=== PATIENT | female | born 1985 | race Caucasian/White ===

== ENCOUNTER 2021-11-07 04:05 | Inpatient (IN) | payer OTHER ==
[~2021-11-07] VITALS: Ht 152.4 cm; Wt 94.3 kg
[2021-11-07] MEDS: LACTATED RINGERS 1,000 ML IV SCH ×3 (04:20→17:20)
[2021-11-07] MEDS ORDERED: MORPHINE SULFATE 5 MG/ML VIAL IVP PRN (04:55)
[2021-11-07] MEDS ORDERED: ONDANSETRON 4 MG/2 ML VIAL IVP PRN (04:55)
[2021-11-07] MEDS ORDERED: METHYLERGONOVINE 0.2 MG/ML AMP IM PRN ×2 (04:55→23:25)
[2021-11-07] MEDS: OXYTOCIN 20 UNITS in LACTATED RINGERS 1,000 ML IV SCH ×2 (04:55→14:03)
[2021-11-07] MEDS ORDERED: CARBOPROST 250 MCG/ML AMP IM PRN (04:55)
[2021-11-07] MEDS ORDERED: MORPHINE SULFATE 10 MG/ML VIAL ONE ×2 (05:05→07:45)
[2021-11-07] MEDS ORDERED: ONDANSETRON 4 MG/2 ML VIAL ONE (05:06)
[2021-11-07] MEDS ORDERED: PRETAB PO (05:16)
[2021-11-07 05:19] VITALS: BP 130/76
[2021-11-07 06:59] LABS: ALBUMIN 2.6 g/dL (3.4-5.0); ANION GAP 15.9 (8-16); CARBON DIOXIDE 19.1 mmol/L (21-32); CREATININE 0.8 mg/dL (0.6-1.3); TOTAL BILIRUBIN 0.3 mg/dL (0.0-1.0)
[2021-11-07] MEDS ORDERED: OXYTOCIN 20 UNITS/LR PREMIX 1,000 ML IV ONE (07:39)
[2021-11-07 07:44] LABS: BASOPHILS # (AUTO) 0.1 K/uL (0.00-0.22); BASOPHILS % (AUTO) 0.3 % (0.0-2.0); EOSINOPHILS % (AUTO) 0.3 % (0.0-4.0); HEMATOCRIT 34.7 % (36-48); HEMOGLOBIN 11.3 g/dL (12.0-16.0); LYMPHOCYTES # (AUTO) 1.9 K/uL (2.5-16.5); LYMPHOCYTES % (AUTO) 10.6 % (20.5-51.1); MEAN CORPUSCULAR HEMOGLOBIN 29 pg (27-31); MEAN CORPUSCULAR HGB CONC 33 g/dL (33-37); MEAN CORPUSCULAR VOLUME 88.1 fL (80-94); MONOCYTES # (AUTO) 0.8 K/uL (0.8-1.0); MONOCYTES % (AUTO) 4.7 % (1.7-9.3); NEUTROPHILS # (AUTO) 14.9 K/uL (1.8-7.7); NEUTROPHILS % (AUTO) 84.1 % (42.2-75.2); PLATELET COUNT (AUTO) 378 K/uL (140-450); RED BLOOD CELL COUNT(AUTO) 3.94 MIL/uL (4.20-5.40); RED CELL DISTRIBUTION WIDTH 15.3 % (11.6-13.7); WHITE BLOOD COUNT (AUTO) 17.7 K/uL (4.8-10.8)
[2021-11-07] MEDS ORDERED: ROPIVACAINE 0.2%/NS PREMIX 200 ML EPI ONE (08:34)
[2021-11-07] MEDS ORDERED: ROPIVACAINE 0.2%/NS PREMIX 100 ML EPI SCH (09:20)
[2021-11-07] MEDS ORDERED: AMPICILLIN 2,000 MG in NACL 0.9% 100 ML IV SCH ×2 (09:25→13:30)
[2021-11-07] MEDS ORDERED: GENTAMICIN PER PHARMACY MC PRN (09:25)
--- NOTE | 2021-11-07 09:27 | NUR ---
PATIENT HAS BEEN SCREENED AND CATEGORIZED LOW NUTRITION RISK. PATIENT WILL BE SEEN WITHIN 7 DAYS OF ADMISSION. 11/07/21-11/13/[address]
[2021-11-07 10:12] LABS: APPEARANCE,URINE CLEAR (CLEAR); BILIRUBIN,URINE NEGATIVE (NEGATIVE); BLOOD, URINE 2+ (NEGATIVE); COLOR,URINE DARK YELLOW (YELLOW); LEUKOCYTE ESTERASE ,URINE NEGATIVE (NEGATIVE); NITRITE, URINE NEGATIVE (NEGATIVE); UGLUCOSE NEGATIVE (NEGATIVE)
[2021-11-07 10:25] LABS: WBC,URINE 0-5 /HPF (0-5)
[2021-11-07 10:28] LABS: CALCIUM OXALATE CRYSTALS,UR 0-10 /HPF (None Seen); OTHER CASTS, URINE None Seen /LPF (None Seen)
[2021-11-07] MEDS ORDERED: GENTAMICIN 80 MG in DEXTROSE 5% 100 ML IV SCH ×2 (11:00→21:00)
[2021-11-07] MEDS ORDERED: CLINDAMYCIN 900 MG in DEXTROSE 5% 100 ML IV SCH ×5 (11:00→21:00)
[2021-11-07] MEDS ORDERED: GENTAMICIN 80 MG in NACL 0.9% 100 ML IV SCH ×2 (11:00→21:00)
[2021-11-07] MEDS ORDERED: ACETAMINOPHEN EXTRA STRENGTH 500 MG TAB PO PRN (15:50)
[2021-11-07] MEDS ORDERED: ACETAMINOPHEN EXTRA STRENGTH 500 MG TAB ONE (16:10)
[2021-11-07] MEDS ORDERED: CITRIC ACID/SODIUM CITRATE 30 ML UDC PO SCH (16:15)
[2021-11-07] MEDS ORDERED: LIDOCAINE MPF 1% 10 MG/ML VIAL INJ SCH (23:00)
[2021-11-07] MEDS ORDERED: LIDOCAINE 1% 500 MG/50 ML VIAL ONE (23:12)
[2021-11-07] MEDS ORDERED: IBUPROFEN 800 MG TAB PO PRN (23:25)
[2021-11-07] MEDS ORDERED: METHYLERGONOVINE 0.2 MG TAB PO PRN (23:25)
[2021-11-07] MEDS ORDERED: OXYTOCIN 10 UNITS/ML VIAL IM PRN (23:25)
[2021-11-07] MEDS ORDERED: MEASLES, MUMPS, AND RUBELLA 1 VIAL SQVAC ONE (23:25)
[2021-11-07] MEDS ORDERED: BENZOCAINE/MENTHOL 20%-0.5% 60 GM CAN TP PRN (23:25)
[2021-11-08 06:07] LABS: HEMATOCRIT 29.7 % (36-48); HEMOGLOBIN 9.8 g/dL (12.0-16.0)
[2021-11-08] MEDS ORDERED: GENTAMICIN 80 MG in DEXTROSE 5% 100 ML IV SCH (13:00)
[2021-11-08] MEDS: FERROUS SULFATE 325 MG TABEC PO SCH (18:06)
[2021-11-09] MEDS ORDERED: FERR325E14 PO (08:04)
[2021-11-09] MEDS: FERROUS SULFATE 325 MG TABEC PO SCH (08:50)
== END 2021-11-09 16:07 | disposition home or self-care (01) | DRG 807 ==
LOC: MLD 04:05 → UNDOADMIN 04:07 → MLD 04:07 → MFCC 11-08 01:14
PROVIDERS: ADMIT Obstetrics & Gynecology; ATTEND Obstetrics & Gynecology
PROC: 10E0XZZ Delivery of Products of Conception, External Approach (ICD-10-PCS; principal; 2021-11-07)
PROC: 3E0R3BZ Introduction of Anesthetic Agent into Spinal Canal, Percutaneous Approach (ICD-10-PCS; 2021-11-07)
PROC: 00HU33Z Insertion of Infusion Device into Spinal Canal, Percutaneous Approach (ICD-10-PCS; 2021-11-07)
PROC: 3E0234Z Introduction of Serum, Toxoid and Vaccine into Muscle, Percutaneous Approach (ICD-10-PCS; 2021-11-07)
DX: O77.0 Labor and delivery complicated by meconium in amniotic fluid (principal); Z37.0 Single live birth; O99.52 Diseases of the respiratory system complicating childbirth; J45.909 Unspecified asthma, uncomplicated; O90.81 Anemia of the puerperium; Z3A.40 40 weeks gestation of pregnancy; Z23 Encounter for immunization
CPT/HCPCS: 36415; 80053; 81001; 85018; 85025; 85610; 85730; 86592; 86762; 86850; 86886; 86900; 86901; 87340; J1580; J2001; J2270; J2405; J2590; J2790; J2795; J3490; J7060; J7120